=== PATIENT | female | born 1965 | race Hispanic/Latino ===

== ENCOUNTER 2020-08-25 22:48 | Emergency (ER) | payer SELFPAY ==
[2020-08-25] MEDS ORDERED: diphenhydrAMINE 50 MG/ML VIAL ONE (23:51)
[2020-08-25] MEDS ORDERED: Metoclopramide HCl 10 MG/2 ML VIAL ONE (23:51)
[2020-08-26] MEDS ORDERED: Ketorolac Tromethamine 30 MG/ML VIAL ONE (00:41)
[2020-08-26] MEDS ORDERED: Ondansetron PF 4 MG/2 ML Vial ONE (00:42)
== END 2020-08-26 01:14 | disposition home or self-care (01) ==
LOC: ERS 22:48
DX: R51.9 Headache, unspecified (principal); E03.9 Hypothyroidism, unspecified
CPT/HCPCS: 96365; 96375; J1200; J1885; J2405; J2765